=== PATIENT | female | born 1950 | race Caucasian/White ===

== ENCOUNTER 2017-04-02 01:39 | Emergency (ER) | payer SELFPAY, MEDICARE, OTHER | END 2017-04-02 02:27 | disposition left against medical advice (07) | LOC: FTE 01:39 | DX: Z53.21 Procedure and treatment not carried out due to patient leaving prior to being seen by health care provider (principal) ==

== ENCOUNTER 2017-04-05 07:58 | Emergency (ER) | payer MEDICARE, OTHER | END 2017-04-05 09:33 | disposition home or self-care (01) | LOC: FTE 07:58 | DX: J20.9 Acute bronchitis, unspecified (principal) | CPT/HCPCS: 71045; 99284-25 ==

== ENCOUNTER → 2018-08-06 | Outpatient (CLI) | payer MEDICARE, OTHER ==
[2018-08-06 17:30] LABS: TRIIODOTHYRONINE 1.17 ng/ml (0.97-1.69)
== END | disposition home or self-care (01) ==
LOC: LAB 12:44
DX: E78.5 Hyperlipidemia, unspecified (principal); E11.9 Type 2 diabetes mellitus without complications
CPT/HCPCS: 84436; 84443; 84480